=== PATIENT | female | born 1955 | race Caucasian/White ===

== ENCOUNTER → 2020-05-27 | Outpatient (CLI) | payer MEDICARE ==
[~2020-05-27] MED LIST: OMNIPAQUE 350 MG/ML, 100ML BOTTLE ONE
== END | disposition home or self-care (01) ==
LOC: CFH 13:06
PROVIDERS: ATTEND Internal Medicine
DX: R91.8 Other nonspecific abnormal finding of lung field (principal); M43.24 Fusion of spine, thoracic region; E04.9 Nontoxic goiter, unspecified; R06.2 Wheezing
CPT/HCPCS: 71260; 82565; Q9967